=== PATIENT | female | born 1980 | race Caucasian/White ===

== ENCOUNTER 2018-04-23 19:03 | Emergency (ER) | payer OTHER ==
[2018-04-23 21:29] LABS: OCCULT BLOOD STOOL NEGATIVE (NEGATIVE)
[2018-04-23 21:46] LABS: URINE PH (Dip) POC 7.5 (5.0-8.5)
[2018-04-23 21:46] LABS: URINE BLOOD (Dip) POC Trace-intact (NEGATIVE); URINE GLUCOSE (Dip) POC Negative (NEGATIVE); URINE KETONES (Dip) POC Negative (NEGATIVE); URINE LEUKOCYTE EST (Dip) POC Trace (NEGATIVE); URINE NITRITE (Dip) POC Negative (NEGATIVE); URINE TOTAL PROTEIN POC Negative (NEGATIVE)
== END 2018-04-23 22:08 | disposition home or self-care (01) ==
LOC: FTE 19:03
DX: N30.00 Acute cystitis without hematuria (principal)
CPT/HCPCS: 81003; 81025; 82270; 99284